=== PATIENT | female | born 1945 | race Caucasian/White ===

== ENCOUNTER 2024-09-29 13:08 | Observation (INO) | payer MEDICARE ==
[~2024-09-29] VITALS: Ht 162.6 cm; Wt 60.5 kg
[2024-09-29 13:56] LABS: BASOPHILS ABSOLUTE AUTO 0.05 K/mm3 (0.00-0.23); BASOPHILS PERCENT AUTO 1 % (0-2); EOSINOPHILS ABSOLUTE AUTO 0.12 K/mm3 (0.00-0.68); EOSINOPHILS PERCENT AUTO 2 % (0-6); Hematocrit 40.8 % (33.0-51.0); Hemoglobin 13.8 g/dL (11.5-16.0); IMMATURE GRAN ABSOLUTE AUTO 0.01 K/mm3 (0.00-0.10); IMMATURE GRAN PERCENT AUTO 0 % (0-1); LYMPHOCYTES ABSOLUTE AUTO 3.57 K/mm3 (0.84-5.20); LYMPHOCYTES PERCENT AUTO 51 % (21-46); MONOCYTES ABSOLUTE AUTO 0.44 K/mm3 (0.16-1.47); MONOCYTES PERCENT AUTO 6 % (4-13); Mean Corpuscular HGB 30.7 pg (26.0-34.0); Mean Corpuscular HGB Conc 33.8 g/dL (31.5-36.5); Mean Corpuscular Volume 91 fL (80-100); Mean Platelet Volume 10.2 fL (9.1-12.4); NEUTROPHILS ABSOLUTE AUTO 2.75 K/mm3 (1.96-9.15); NEUTROPHILS PERCENT AUTO 40 % (41-73); Platelet Count 209 K/mm3 (150-400); RDW Coefficient Variation 13.3 % (11.7-14.2); RDW Standard Deviation 44.9 fL (35.1-46.3); White Blood Cell Count 6.94 K/mm3 (4.00-11.30)
[2024-09-29 14:20] LABS: Albumin, Blood 3.9 g/dL (3.4-5.0); Albumin/Globulin Ratio 1.2 (0.8-1.8); Bilirubin, Total 0.6 mg/dL (0.1-1.0); Bun/Creatinine Ratio 28.6 (12.0-20.0); Calcium, Blood 8.8 mg/dL (8.5-10.1); Creatinine, Blood 0.66 mg/dL (0.40-1.00); Globulin, Blood 3.2 g/dL (2.2-4.0); Potassium, Blood 3.8 mmol/L (3.5-5.5); Total Protein, Blood 7.1 g/dL (6.4-8.2)
[2024-09-29] MEDS ORDERED: Aspirin 325 MG Tab PO ONE (15:25)
[2024-09-29] MEDS ORDERED: DiphenhydrAMINE HCl 50 MG/ML 1ML Vial IV ONE (15:35)
[2024-09-29] MEDS ORDERED: ATEN50 PO (16:00)
[2024-09-29] MEDS ORDERED: TOPROL XL25 MG PO (16:00)
[2024-09-29] MEDS ORDERED: VITAMIN D5000 UNIT PO (16:02)
[2024-09-29] MEDS ORDERED: CALCIUM ACETAT667 MG PO (16:02)
[2024-09-29] MEDS ORDERED: FLU VACC TS2024-25(6MOS UP)/PF 45 MCG/0.5 ML SYRINGE IM ONE (16:35)
--- NOTE | 2024-09-29 19:24 | NUR ---
1853- PT ARRIVED ON MEDICAL FLOOR IN STABLE CONDITION AFTER RECEIVING REPORT FROM FROM AZAEL FINLEY. PT ON RA. REPORT GIVEN TO AZAEL MENDOZA AT 1855.
[2024-09-29 20:02] VITALS: BP 176/102
[2024-09-29] MEDS ORDERED: ATOR10 PO (21:28)
[2024-09-30 04:23] VITALS: BP 126/72
[2024-09-30 05:08] LABS: BASOPHILS ABSOLUTE AUTO 0.04 K/mm3 (0.00-0.23); BASOPHILS PERCENT AUTO 1 % (0-2); EOSINOPHILS ABSOLUTE AUTO 0.12 K/mm3 (0.00-0.68); EOSINOPHILS PERCENT AUTO 3 % (0-6); Hematocrit 39.1 % (33.0-51.0); IMMATURE GRAN PERCENT AUTO 0 % (0-1); LYMPHOCYTES ABSOLUTE AUTO 2.78 K/mm3 (0.84-5.20); LYMPHOCYTES PERCENT AUTO 58 % (21-46); MONOCYTES PERCENT AUTO 8 % (4-13); Mean Corpuscular HGB 30.3 pg (26.0-34.0); Mean Corpuscular HGB Conc 33.2 g/dL (31.5-36.5); Mean Corpuscular Volume 91 fL (80-100); Mean Platelet Volume 10.5 fL (9.1-12.4); NEUTROPHILS ABSOLUTE AUTO 1.48 K/mm3 (1.96-9.15); NEUTROPHILS PERCENT AUTO 31 % (41-73); Platelet Count 183 K/mm3 (150-400); RDW Coefficient Variation 13.4 % (11.7-14.2); RDW Standard Deviation 45.2 fL (35.1-46.3); Red Blood Cell Count 4.29 M/mm3 (3.80-5.20); White Blood Cell Count 4.82 K/mm3 (4.00-11.30)
[2024-09-30 05:28] LABS: Alanine Aminotransfer (ALT/SGP 17 U/L (12-78); Albumin, Blood 3.5 g/dL (3.4-5.0); Albumin/Globulin Ratio 1.2 (0.8-1.8); Alk Phos 49 U/L (50-136); Anion Gap 9 mmol/L (3-11); Aspartate Aminotrans (AST/SGOT 21 U/L (12-37); Bilirubin, Total 0.5 mg/dL (0.1-1.0); Blood Urea Nitrogen 19 mg/dL (8-24); Bun/Creatinine Ratio 24.9 (12.0-20.0); CHOL/HDL RATIO 1.7; CO2, Blood 27 mmol/L (21-32); Calcium, Blood 8.8 mg/dL (8.5-10.1); Chloride, Blood 105 mmol/L (98-108); Cholesterol 147 mg/dL (50-200); Creatinine, Blood 0.76 mg/dL (0.40-1.00); Globulin, Blood 2.9 g/dL (2.2-4.0); Glomerular Filtration Rate 80 (60-); Glucose, Blood 89 mg/dL (70-99); HDL Cholesterol 89 mg/dL (>39); LDL/HDL RATIO 0.6; Low Density Lipoprotein Chol 49 mg/dL (0-110); Potassium, Blood 3.6 mmol/L (3.5-5.5); Sodium, Blood 137 mmol/L (136-145); Total Protein, Blood 6.4 g/dL (6.4-8.2); Triglycerides 45 mg/dL (30-160); Very Low Density Lipoprot Chol 9 mg/dL (6-32)
--- NOTE | 2024-09-30 06:02 | NUR ---
SHIFT SUMMARY PT HAS BEEN RESTING IN BED COMFORTABLY OVERNIGHT. PT HAS BEEN AOX4, CALM AND COOPERATIVE. PT HAS BEEN ON TELEMETRY. PT HAS BEEN INDEPENDENT TO BATHROOM OVERNIGHT. PT HAS BEEN SLIGHTLY ANXIOUS FOR UPCOMING TESTS. OTHERWISE, PT HAS HAD NO COMPLAINTS. NO ACUTE EVENTS OVERNIGHT.
[2024-09-30 07:23] VITALS: BP 155/95
[2024-09-30] MEDS ORDERED: Clopidogrel Bisulfate 300 MG TABLET PO ONE (07:30)
[2024-09-30] MEDS ORDERED: Atorvastatin 40 MG Tab PO SCH (09:00)
[2024-09-30] MEDS ORDERED: Aspirin 81 MG Chew PO SCH (09:00)
[2024-09-30 15:17] VITALS: BP 125/75
[2024-09-30] MEDS ORDERED: CLOP75 PO (17:03)
[2024-09-30] MEDS ORDERED: ASPI81CH PO (17:03)
--- NOTE | 2024-09-30 18:32 | NUR ---
DC- PT LEFT IN STABLE CONDITION WITH ALL BELONGINGS. PICKED UP PT FOR DC.
[2024-10-01] MEDS ORDERED: Clopidogrel Bisulfate 75 MG Tab PO SCH (09:00)
== END 2024-09-30 19:00 | disposition home or self-care (01) ==
LOC: ER 13:08 → ERHOLD 13:09 → MEDS 13:09
PROVIDERS: Physician Assistant; ADMIT Hospitalist
DX: G45.9 Transient cerebral ischemic attack, unspecified (principal); E78.00 Pure hypercholesterolemia, unspecified; I10 Essential (primary) hypertension; Z79.899 Other long term (current) drug therapy; Z88.2 Allergy status to sulfonamides; Z91.041 Radiographic dye allergy status; Z86.79 Personal history of other diseases of the circulatory system
CPT/HCPCS: 36415; 70450; 70496; 70498; 70551; 71045; 80053; 80061; 83036; 84443; 84484; 85025; 93005; 93010; 93246; 93306; 96374-59; 97161; 97530; 99285-25; A9270; G0378; J1200; Q9967